=== PATIENT | female | born 1955 | race Caucasian/White ===

== ENCOUNTER 2021-12-05 16:08 | Emergency (ER) | payer MEDICARE, SELFPAY ==
--- NOTE | ~2021-12-05 | XR_ITS ---
EXAMINATION: XR chest 2V DATE: 12/05/2021 16:56 INDICATION: Cough and shortness of breath and wheezing. TECHNIQUE: Frontal and lateral views of the chest were obtained. COMPARISON: Chest 2 views 08/29/2019 FINDINGS: There is table mild scarring at the lung apices. There are airspace opacities in the lower lung zones. No pleural effusion or pneumothorax. The heart size is normal. IMPRESSION: 1. Airspace opacities in the lower lung zones, consistent with atelectasis versus pneumonia. Reviewed, dictated and finalized at location A. IMPRESSION: 1. Airspace opacities in the lower lung zones, consistent with atelectasis vers us pneumonia.
[2021-12-05 16:30] VITALS: BP 137/61; PULSE 100; RESP 20; TEMP 37.7; O2SAT 92
--- NOTE | 2021-12-05 17:29 | ED.URI ---
HPI - URI/Sore Throat General Chief Complaint: Upper Respiratory Infection Stated Complaint: wheezing, cough,chest pain Time Seen by Provider: 12/05/21 17:25 Source: patient and RN notes reviewed Mode of arrival: ambulatory Limitations: no limitations History of Present Illness HPI Narrative: 66-year-old female presents concern for body aches, cough, wheezing, fevers. Reports symptoms started in the last day. She reports mid back pain. She reports occasional shortness of breath. She reports she has been taking Mucinex. She denies any known sick contacts. MD elicited complaint: cough Related Data Home Medications Medication Instructions Recorded Confirmed albuterol sulfate 1 puff INHALATION QID PRN 09/22/19 12/05/21 atorvastatin 10 mg PO DAILY 09/22/19 12/05/21 dexlansoprazole [Dexilant] 60 mg PO DAILY 09/22/19 12/05/21 alendronate mg PO 12/05/21 amlodipine 12/05/21 12/05/21 levothyroxine 25 mcg PO DAILY 12/05/21 12/05/21 Allergies Allergy/AdvReac Type Severity Reaction Status Date / Time prednisone Allergy Unknown ELEVATED BP Verified 12/05/21 16:52 tramadol Allergy Unknown Hallucinati Verified 12/05/21 16:52 ng Review of Systems Review of Systems: CONSTITUTIONAL: Reports malaise, fever. EYES: Denies visual changes, redness, or discharge. ENT: Reports rhinorrhea, congestion. Denies sinus pain, otalgia and sore throat. CARDIOVASCULAR: Denies chest pain, palpitations, or edema. RESPIRATORY: Reports cough, dyspnea. GASTROINTESTINAL: Denies abdominal pain, nausea, vomiting, diarrhea SKIN: Denies rash or itching. MUSCULOSKELETAL: Reports myalgia. NEUROLOGIC: Denies headache. All systems reviewed & are unremarkable except as noted in HPI and below PMFSH Past Medical History Medical History (Updated 12/05/21 @ 17:35 by Jackelin Pascual NP) GERD (gastroesophageal reflux disease) Hypercholesterolemia Comments At time of signature, agree with nursing past medical, surgical, social and family history. There is no relevant family history pertinent to the presenting complaint Exam Narrative: GENERAL: Well-appearing, well-nourished, and in no acute distress. HEAD: Normocephalic EYES: PERRLA, conjunctivae clear ENT: Nares clear, clear discharge. Mucous membranes moist. TM pearly ambriz with sharp light reflex bilaterally; no tragal tenderness. Oropharynx not erythematous without lesions. Tonsils not enlarged and without exudate, no drooling, no hoarseness, no trismus, uvula midline. NECK: Supple. No lymphadenopathy CHEST: Scattered and rhonchi right-sided wheeze, otherwise clear to auscultation, breath sounds diminished in the bases. No rales, or stridor. No respiratory distress, speaks in full sentences. HEART: Regular rate and rhythm. No murmur heard. SKIN: Warm, dry, no rash. NEURO: Alert and oriented x3. PSYCH: Normal mood and affect Course Course Emergency Course: Patient is aware of diagnosis, understands and agrees to treatment plan. Anticipatory guidance given. Patient agrees to follow-up as directed and is aware of reasons to seek care at the emergency department. Portions of this record may have been created with voice recognition software Level of Care: Express Care Visit Vital Signs Vital signs: Vital Signs Temperature 100 F H 12/05/21 16:30 Pulse Rate 100 12/05/21 16:30 Respiratory Rate 20 12/05/21 16:30 Blood Pressure 137/61 12/05/21 16:30 Pulse Oximetry 92 12/05/21 16:30 Temperature 100 F H 12/05/21 16:30 Pulse Rate 100 12/05/21 16:30 Respiratory Rate 20 12/05/21 16:30 Blood Pressure 137/61 12/05/21 16:30 Pulse Oximetry 92 12/05/21 16:30 Reviewed. MDM - URI/Sore Throat MDM Narrative Medical decision making narrative: Differential diagnosis considered: [place] virus, strep pharyngitis, allergic rhinitis, upper respiratory tract infection, sinusitis, rhinosinusitis, nasopharyngitis. viral pharyngitis, otitis media, otitis externa, pneumonia, bronchitis, dasia
== END 2021-12-05 17:41 | disposition home or self-care (01) ==
PROVIDERS: Emergency Provider Nurse Practitioner
DX: J18.1 Lobar pneumonia, unspecified organism (principal); K21.9 Gastro-esophageal reflux disease without esophagitis; E78.00 Pure hypercholesterolemia, unspecified
CPT/HCPCS: 71046; 99213; G0463

== ENCOUNTER 2022-04-07 09:15 | Emergency (ER) | payer MEDICARE, SELFPAY ==
[2022-04-07 09:20] VITALS: BP 153/75; PULSE 69; RESP 20; TEMP 36.6; O2SAT 99
--- NOTE | 2022-04-07 09:43 | ED.FEMALEGU ---
HPI - Female Genitourinary General Chief complaint: Urogenital-Female Stated complaint: Urinary Problem Time Seen by Provider: 04/07/22 09:45 Source: patient and RN notes reviewed Mode of arrival: ambulatory Limitations: no limitations History of Present Illness HPI Narrative: 66-year-old female presented for complaint of burning with urination, suprapubic pressure, urinary frequency and urgency for 2 days. She has been taking [id number] Azo for symptoms. She denies nausea, vomiting, flank pain, fevers or chills. Related Data Home Medications Medication Instructions Recorded Confirmed albuterol sulfate 90 mcg/actuation 1 puff inhalation QID PRN sob 09/22/19 04/07/22 aerosol inhaler atorvastatin 10 mg tablet 10 mg PO DAILY 09/22/19 12/05/21 dexlansoprazole 60 mg 60 mg PO DAILY 09/22/19 12/05/21 capsule,biphase delayed release (Dexilant) alendronate 70 mg tablet mg PO 12/05/21 amlodipine 2.5 mg tablet 12/05/21 12/05/21 levothyroxine 25 mcg tablet 25 mcg PO DAILY 12/05/21 12/05/21 Allergies Allergy/AdvReac Type Severity Reaction Status Date / Time prednisone Allergy Unknown ELEVATED BP Verified 04/07/22 09:47 tramadol Allergy Unknown Hallucinati Verified 04/07/22 09:47 ng doxycycline AdvReac Nausea and Verified 04/07/22 09:48 Vomiting Review of Systems Review of Systems: CONSTITUTIONAL: Denies body aches, fever, chills, or sweats. CARDIOVASCULAR: Denies chest pain, palpitations, or edema. RESPIRATORY: Denies cough or dyspnea. GASTROINTESTINAL: Denies abdominal pain, nausea, vomiting, or diarrhea. GENITOURINARY: Reports dysuria, frequency, urgency, hematuria, flank pain SKIN: Denies rash, itching, or wounds. MUSCULOSKELETAL: Denies back pain or myalgia. [facility], LAT[facility] Past Medical History Medical History GERD (gastroesophageal reflux disease) Hypercholesterolemia Comments At time of signature, I have reviewed and agree with nursing past medical, surgical, social and family history unless otherwise noted. Please see nursing chart for further information. There is no relevant family history pertinent to the presenting complaint Exam Narrative: GENERAL: Well-appearing and in no acute distress. ENT: Mucous membranes pink and moist. CHEST: No respiratory distress. Clear to auscultation. HEART: Regular rate and rhythm. ABDOMEN: Soft, nontender, nondistended, normal active bowel sounds. No CVA tenderness SKIN: Warm, dry, no rash. NEURO: No focal deficits. Alert and oriented x3. Gait steady. PSYCH: Normal affect. Course Course Emergency Course: Patient is aware of diagnosis, understands and agrees to treatment plan. Anticipatory guidance given. Patient agrees to follow-up as directed and is aware of reasons to seek care at the emergency department. Portions of this record may have been created with voice recognition software Level of Care: Express Care Visit Vital Signs Vital signs: Vital Signs Temperature 98 F 04/07/22 09:20 Pulse Rate 69 04/07/22 09:20 Respiratory Rate 20 04/07/22 09:20 Blood Pressure 153/75 H 04/07/22 09:20 Pulse Oximetry 99 04/07/22 09:20 Oxygen Delivery Room Air 04/07/22 09:20 Temperature 98 F 04/07/22 09:20 Pulse Rate 69 04/07/22 09:20 Respiratory Rate 20 04/07/22 09:20 Blood Pressure 153/75 H 04/07/22 09:20 Pulse Oximetry 99 04/07/22 09:20 Oxygen Delivery Room Air 04/07/22 09:20 Reviewed MDM - Female Genitourinary MDM Narrative Medical decision making narrative: We will treat for UTI at this time given the patient's symptoms. She is advised to follow-up with her PCP. She is aware of signs symptoms to go to the ER. Lab Data Labs: Urine Glucose Negative Reference Range: Negative Urine Bilirubin Negative Reference Range: Ne
== END 2022-04-07 10:00 | disposition home or self-care (01) ==
PROVIDERS: Emergency Provider Nurse Practitioner Family
DX: R30.0 Dysuria (principal); K21.9 Gastro-esophageal reflux disease without esophagitis; E78.00 Pure hypercholesterolemia, unspecified
CPT/HCPCS: 81003; 87086; 87088; 99213; G0463

== ENCOUNTER 2022-09-04 14:44 | Emergency (ER) | payer MEDICARE, SELFPAY ==
[2022-09-04 14:48] VITALS: BP 171/70; PULSE 85; RESP 20; TEMP 36.6; O2SAT 98
--- NOTE | 2022-09-04 14:50 | ED.URI ---
HPI - URI/Sore Throat General Chief Complaint: Upper Respiratory Infection Stated Complaint: sinus pressure Time Seen by Provider: 09/04/22 14:58 Source: patient and RN notes reviewed Mode of arrival: ambulatory Limitations: no limitations History of Present Illness HPI Narrative: 67-year-old female presents with concern for cough, sore throat, nasal congestion, sinus pressure and pain. Reports 3 week history of symptoms. Reports [id number] medications are not helping her symptoms. MD elicited complaint: cough and sore throat Related Data Home Medications Medication Instructions Recorded Confirmed albuterol sulfate 90 mcg/actuation 1 puff inhalation QID PRN sob 09/22/19 04/07/22 aerosol inhaler atorvastatin 10 mg tablet 10 mg PO DAILY 09/22/19 12/05/21 dexlansoprazole 60 mg 60 mg PO DAILY 09/22/19 12/05/21 capsule,biphase delayed release (Dexilant) alendronate 70 mg tablet mg PO 12/05/21 amlodipine 2.5 mg tablet 12/05/21 12/05/21 levothyroxine 25 mcg tablet 25 mcg PO DAILY 12/05/21 12/05/21 Allergies Allergy/AdvReac Type Severity Reaction Status Date / Time prednisone Allergy Unknown ELEVATED BP Verified 04/07/22 09:47 tramadol Allergy Unknown Hallucinati Verified 04/07/22 09:47 ng doxycycline AdvReac Nausea and Verified 04/07/22 09:48 Vomiting Review of Systems Review of Systems: CONSTITUTIONAL: Reports malaise. Denies chills, sweats, or fever. EYES: Denies visual changes, redness, or discharge. ENT: Reports rhinorrhea, congestion, sinus pain, and sore throat. CARDIOVASCULAR: Denies chest pain, palpitations, or edema. RESPIRATORY: Reports persistent cough. Denies dyspnea. GASTROINTESTINAL: Denies abdominal pain, nausea, vomiting, diarrhea SKIN: Denies rash or itching. MUSCULOSKELETAL: Denies myalgia. NEUROLOGIC: Reports headache. All systems reviewed & are unremarkable except as noted in HPI and below PMFSH Past Medical History Medical History GERD (gastroesophageal reflux disease) Hypercholesterolemia Comments At time of signature, agree with nursing past medical, surgical, social and family history. There is no relevant family history pertinent to the presenting complaint Exam Narrative: GENERAL: Nontoxic-appearing and in no acute distress. HEAD: Normocephalic EYES: PERRLA, conjunctivae clear ENT: Nares clear, turbinates edematous and erythematous. Mucous membranes moist. TM pearly ambriz with dull light reflex bilaterally; no tragal tenderness. Oropharynx not erythematous without lesions. Tonsils not enlarged and without exudate, no drooling, no hoarseness, no trismus, uvula midline. NECK: Supple. No lymphadenopathy CHEST: Clear to auscultation, breath sounds equal. No wheezing, rhonchi, rales, or stridor. No respiratory distress, speaks in full sentences. Cough noted HEART: Regular rate and rhythm. No murmur heard. SKIN: Warm, dry, no rash. NEURO: Alert and oriented x3. PSYCH: Normal mood and affect Course Course Emergency Course: Patient is aware of diagnosis, understands and agrees to treatment plan. Anticipatory guidance given. Patient agrees to follow-up as directed and is aware of reasons to seek care at the emergency department. Portions of this record may have been created with voice recognition software Level of Care: Express Care Visit Vital Signs Vital signs: Reviewed. MDM - URI/Sore Throat MDM Narrative Medical decision making narrative: Differential diagnosis considered: [place] virus, strep pharyngitis, allergic rhinitis, upper respiratory tract infection, sinusitis, rhinosinusitis, nasopharyngitis. viral pharyngitis, otitis media, otitis externa, pneumonia, bronchitis, viral cough syndrome, viral syndrome, and influenza. Exam findings show no acute concerns or changes; patient is non-toxic appearing and is in no distress. Patient is appropriate for outpatient treatment and follow-up. Lab Data At
== END 2022-09-04 15:12 | disposition home or self-care (01) ==
PROVIDERS: Emergency Provider Nurse Practitioner
DX: J32.9 Chronic sinusitis, unspecified (principal); J40 Bronchitis, not specified as acute or chronic; K21.9 Gastro-esophageal reflux disease without esophagitis; E78.00 Pure hypercholesterolemia, unspecified
CPT/HCPCS: 99213; G0463

== ENCOUNTER 2022-10-10 08:33 | Emergency (ER) | payer MEDICARE, BC, SELFPAY ==
--- NOTE | ~2022-10-10 | XR_ITS ---
EXAMINATION: XR chest 2V DATE: 10/10/2022 11:16 INDICATION: Worsening cough TECHNIQUE: PA and lateral views of the chest are obtained. COMPARISON: 12/05/2021 FINDINGS: The lungs are free of acute opacities. No pleural effusion or pneumothorax. The cardiomedia stinal silhouette is normal. There is mild thoracic spondylosis. IMPRESSION: 1. No acute cardiopulmonary abnormality. Reviewed, dictated and finalized at location B. OLOGY TECHNICIAN
[2022-10-10 08:46] VITALS: BP 165/64; PULSE 80; RESP 16; TEMP 36.9; O2SAT 97
--- NOTE | 2022-10-10 08:50 | ED.URI ---
HPI - URI/Sore Throat General Chief Complaint: Upper Respiratory Infection Stated Complaint: cough / cold Time Seen by Provider: 10/10/22 09:04 Source: patient and RN notes reviewed Mode of arrival: ambulatory Limitations: no limitations History of Present Illness HPI Narrative: 67 y/o female presented for c/o worsening intermittent cough over the past few days. Endorses chronic harsh cough, now reports more frequent nonproductive cough and is not able to sleep as a result. Endorses nasal drainage and headache from coughing. Denies sob, cp, palpitations, n/v/d/f/c. Denies fatigue, dizziness, or decreased appetite. Former 1ppd smoker x30 years, quit 15 years ago. dx sinobronchitis 09/04/22, completed zpack and medrol pack and reported improvement in symptoms, recently ran out of inhaler. Has not f/u with pcp. Taking claritin, mucinex and liquid cough med without relief. MD elicited complaint: cough Related Data Home Medications Medication Instructions Recorded Confirmed atorvastatin 10 mg tablet 10 mg PO DAILY 09/22/19 10/10/22 alendronate 70 mg tablet 70 mg PO WEEKLY 12/05/21 10/10/22 amlodipine 2.5 mg tablet 2.5 mg PO DAILY 12/05/21 10/10/22 levothyroxine 25 mcg tablet 25 mcg PO DAILY 12/05/21 10/10/22 losartan 100 mg tablet 100 mg PO DAILY 10/10/22 10/10/22 metformin 500 mg tablet,extended 500 mg PO DAILY 10/10/22 10/10/22 release 24 hr omeprazole 40 mg capsule,delayed 40 mg PO DAILY 10/10/22 10/10/22 release Allergies Allergy/AdvReac Type Severity Reaction Status Date / Time tramadol Allergy Intermediate Hallucinati Verified 10/10/22 08:46 ng doxycycline AdvReac Intermediate Nausea and Verified 10/10/22 08:46 Vomiting Review of Systems Review of Systems: CONSTITUTIONAL: Denies malaise, chills, sweats, fever EYES: Denies visual changes, redness, or discharge ENT: Reports rhinorrhea, congestion, sinus pain, denies otalgia, sore throat CARDIOVASCULAR: Denies chest pain, palpitations, edema RESPIRATORY: Reports cough, post nasal drainage. Denies dyspnea GASTROINTESTINAL: Denies abdominal pain, nausea, vomiting, diarrhea SKIN: Denies rash or itching MUSCULOSKELETAL: Denies myalgia NEUROLOGIC: Reports headache PMFSH Past Medical History Medical History (Updated 10/10/22 @ 09:48 by Rosemary Marrero APRN) GERD (gastroesophageal reflux disease) Hypercholesterolemia Hypertension Pre-diabetes Exam Narrative: GENERAL: well-appearing EYES: conjunctivae clear ENT: Mucous membranes moist. TM pearly ambriz with light reflex bilaterally; no tragal tenderness. Oropharynx not erythematous, mild white exudate, no drooling, no hoarseness, no trismus, uvula midline. CHEST: Clear to auscultation, breath sounds equal. RLL with mild rhonchi clears with coughing; No wheezing, rhonchi, rales, or stridor. No respiratory distress, speaks in full sentences. HEART: Regular rate and rhythm. No murmur heard. SKIN: Warm, dry, no rash. NEURO: Alert and oriented x3. PSYCH: Normal mood and affect Course Course Emergency Course: Patient is aware of diagnosis, understands and agrees to treatment plan. Anticipatory guidance given. Patient agrees to follow-up as directed and is aware of reasons to seek care at the emergency department. Portions of this record may have been created with voice recognition software Level of Care: Express Care Visit Vital Signs Vital signs: Vital Signs Temperature 98.5 F 10/10/22 08:46 Pulse Rate 80 10/10/22 08:46 Respiratory Rate 16 10/10/22 08:46 Blood Pressure 165/64 H 10/10/22 08:46 Pulse Oximetry 97 10/10/22 08:46 Oxygen Delivery Room Air 10/10/22 08:46 Temperature 98.5 F 10/10/22 08:46 Pulse Rate 80 10/10/22 08:46 Respiratory Rate 16 10/10/22 08:46 Blood Pressure 165/64 H 10/10/22 08:46 Pulse Oximetry 97 10/10/22 08:46 Oxygen Delivery Room Air 10/10/22 08:46 reviewed MDM - URI/Sore Throat MDM Narrative Medical decision making na
== END 2022-10-10 09:55 | disposition home or self-care (01) ==
PROVIDERS: Emergency Provider Nurse Practitioner Family
DX: J40 Bronchitis, not specified as acute or chronic (principal); K21.9 Gastro-esophageal reflux disease without esophagitis; E78.00 Pure hypercholesterolemia, unspecified; I10 Essential (primary) hypertension; R73.03 Prediabetes
CPT/HCPCS: 71046; 99213; G0463

== ENCOUNTER 2023-01-30 10:30 | Emergency (ER) | payer MEDICARE, BC, SELFPAY ==
[2023-01-30 10:39] VITALS: BP 138/68; PULSE 85; RESP 18; TEMP 36.9; O2SAT 97
[2023-01-30 10:43] VITALS: BP 138/68; PULSE 85; RESP 18; TEMP 36.9; O2SAT 97
--- NOTE | 2023-01-30 10:56 | ED.URI ---
HPI - URI/Sore Throat General Chief Complaint: Upper Respiratory Infection Stated Complaint: Cough/Sore Throat Source: patient and RN notes reviewed Mode of arrival: ambulatory Limitations: no limitations History of Present Illness HPI Narrative: 67-year-old female presented for complaint of frequent nonproductive cough for 5 days. Endorses associated sinus congestion and drainage, sore throat, and headache. Denies fatigue, sob, wheezing, n/v/f/c. Taking Xyzal for symptoms. Denies sick contacts. MD elicited complaint: cough Related Data Home Medications Medication Instructions Recorded Confirmed atorvastatin 10 mg tablet 10 mg PO DAILY 09/22/19 01/30/23 alendronate 70 mg tablet 70 mg PO WEEKLY 12/05/21 01/30/23 levothyroxine 25 mcg tablet 25 mcg PO DAILY 12/05/21 01/30/23 losartan 100 mg tablet 100 mg PO DAILY 10/10/22 01/30/23 metformin 500 mg tablet,extended 500 mg PO DAILY 10/10/22 01/30/23 release 24 hr omeprazole 40 mg capsule,delayed 40 mg PO DAILY 10/10/22 01/30/23 release amlodipine 5 mg tablet 5 mg PO DAILY 01/30/23 01/30/23 Allergies Allergy/AdvReac Type Severity Reaction Status Date / Time tramadol Allergy Intermediate Hallucinati Verified 01/30/23 10:38 ng doxycycline AdvReac Intermediate Nausea and Verified 01/30/23 10:38 Vomiting Review of Systems Review of Systems: CONSTITUTIONAL: Denies malaise, chills, sweats, fever EYES: Denies visual changes, redness, or discharge ENT: Reports rhinorrhea, congestion, sore throat CARDIOVASCULAR: Denies chest pain, palpitations, edema RESPIRATORY: Reports cough, post nasal drainage. Denies dyspnea GASTROINTESTINAL: Denies abdominal pain, nausea, vomiting, diarrhea SKIN: Denies rash or itching MUSCULOSKELETAL: Denies myalgia NEUROLOGIC: Endorses headache PMFSH Past Medical History Medical History GERD (gastroesophageal reflux disease) Hypercholesterolemia Hypertension Pre-diabetes Social History Social History (Updated 01/30/23 @ 11:08 by Rosemary Marrero APRN) Smoking status: Former smoker Exam Narrative: GENERAL: mildly Ill-appearing, nontoxic no acute distress. HEAD: Normocephalic EYES: PERRLA, conjunctivae clear ENT: Mucous membranes moist. TMs pearly ambriz with dull light reflex bilaterally; no tragal tenderness. Oropharynx erythematous without lesions or exudate NECK: Supple. No lymphadenopathy CHEST: Clear to auscultation, breath sounds equal. 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 No wheezing, rhonchi, rales, or stridor. No respiratory distress, speaks in full sentences. HEART: Regular rate and rhythm. SKIN: Warm, dry, no rash. NEURO: Alert and oriented x3. PSYCH: Normal mood and affect Course Course Emergency Course: Patient is aware of diagnosis, understands and agrees to treatment plan. Anticipatory guidance given. Patient agrees to follow-up as directed and is aware of reasons to seek care at the emergency department. Portions of this record may have been created with voice recognition software Level of Care: Express Care Visit Vital Signs Vital signs: Vital Signs Temperature 98.4 F 01/30/23 10:39 Pulse Rate 85 01/30/23 10:39 Respiratory Rate 18 01/30/23 10:39 Blood Pressure 138/68 01/30/23 10:39 Pulse Oximetry 97 01/30/23 10:39 Oxygen Delivery Room Air 01/30/23 10:39 Temperature 98.4 F 01/30/23 10:43 Pulse Rate 85 01/30/23 10:43 Respiratory Rate 18 01/30/23 10:43 Blood Pressure 138/68 01/30/23 10:43 Pulse Oximetry 97 01/30/23 10:43 Oxygen Delivery Room Air 01/30/23 10:43 reviewed MDM - URI/Sore Throat MDM Narrative Medical decision making narrative: Negative strep test reviewed with patient. Discussed physical exam findings. She states she has had Covid x2 since 04/2022, pneumonia, and bronchitis. Endorses similar cough each time and CXR is 'always clear.' Declines imaging at this time. Advised lowe
== END 2023-01-30 11:06 | disposition home or self-care (01) ==
PROVIDERS: Emergency Provider Nurse Practitioner Family
DX: J06.9 Acute upper respiratory infection, unspecified (principal); K21.9 Gastro-esophageal reflux disease without esophagitis; E78.00 Pure hypercholesterolemia, unspecified; I10 Essential (primary) hypertension; R73.03 Prediabetes
CPT/HCPCS: 87081; 87880; 99213; G0463

== ENCOUNTER 2023-09-06 09:50 | Emergency (ER) | payer MEDICARE, BC, SELFPAY ==
--- NOTE | ~2023-09-06 | XR_ITS ---
EXAMINATION: XR hand LT min 3V INDICATION: Left hand pain, history of prior left fifth finger injury TECHNIQUE: Three views of the left hand are obtained. COMPARISON: None available FINDINGS: There is an age-indeterminate oblique intra-articular fracture at the dorsal base of the fi fth middle phalanx which involves less than 50% of the articular surface. No definite additional frac ture is identified. There is mild polyarticular osteoarthritis involving multiple interphalangeal bebo nts and moderate osteoarthritis at the triscaphe and first carpometacarpal joints. IMPRESSION: 1. Age-indeterminate oblique intra-articular fracture at the dorsal base of the fifth middle phalanx. Reviewed, dictated and finalized at location B. FITS ASSISTANT
[2023-09-06 09:58] VITALS: BP 154/69; PULSE 77; RESP 16; TEMP 37.1; O2SAT 95
--- NOTE | 2023-09-06 10:16 | ED.EXTPRO ---
HPI - Extremity Problem General Chief complaint: Extremity Problem,Nontraumatic Stated complaint: left hand swollen and painful Source: patient and RN notes reviewed Mode of arrival: ambulatory Limitations: no limitations History of Present Illness HPI Narrative: 68-year-old female presents concern for left wrist/hand pain and swelling. Reports that started last night somewhat suddenly. She denies any distinct injury. Reports before she started having pain she was caring a heavy pot of soup but did not have pain at that time. She reports over the course of the night she had trouble sleeping due to the pain and it was very swollen this morning. She reports decreased range of motion in the digits. MD Complaint: extremity pain Related Data Home Medications Medication Instructions Recorded Confirmed atorvastatin 10 mg tablet 10 mg PO DAILY 09/22/19 09/06/23 alendronate 70 mg tablet 70 mg PO WEEKLY 12/05/21 09/06/23 levothyroxine 25 mcg tablet 25 mcg PO DAILY 12/05/21 09/06/23 losartan 100 mg tablet 100 mg PO DAILY 10/10/22 09/06/23 metformin 500 mg tablet,extended 500 mg PO DAILY 10/10/22 09/06/23 release 24 hr omeprazole 40 mg capsule,delayed 40 mg PO DAILY 10/10/22 09/06/23 release amlodipine 5 mg tablet 5 mg PO DAILY 01/30/23 09/06/23 Allergies Allergy/AdvReac Type Severity Reaction Status Date / Time tramadol Allergy Intermediate Hallucinati Verified 09/06/23 09:59 ng doxycycline AdvReac Intermediate Nausea and Verified 09/06/23 09:59 Vomiting Review of Systems Review of Systems: CONSTITUTIONAL: Denies malaise, chills, sweats, or fever. CARDIOVASCULAR: Denies chest pain, palpitations, or edema. RESPIRATORY: Denies cough or dyspnea. SKIN: Denies rash or itching, bruising, redness MUSCULOSKELETAL: Reports left hand pain and swelling NEUROLOGIC: Denies numbness, weakness All systems reviewed & are unremarkable except as noted in HPI and below [facility] Past Medical History Medical History GERD (gastroesophageal reflux disease) Hypercholesterolemia Hypertension Pre-diabetes Surgical History Surgical History History of bowel resection History of exploratory laparotomy Family History Family History Mother Family history non-contributory Social History Social History Smoking status: Former smoker Substance use: never Gender identity (if verbalized by the patient): Female Sexual Orientation (if Verbalized by the Patient): Straight or Heterosexual Spiritual care concerns: No Comments At time of signature, agree with nursing past medical, surgical, social and family history. There is no relevant family history pertinent to the presenting complaint Exam Narrative: GENERAL: Well-appearing, well-nourished, and in no acute distress. HEAD: Normocephalic, atraumatic. EYES: PERRLA, conjunctivae clear NECK: Supple. CHEST: Speaks in full sentences. No respiratory distress. HEART: Regular rate and rhythm. Normal and equal peripheral pulses. EXTREMITIES: Left wrist, digits, hand have grossly normal sensation, limited range of motion. Moderate wrist, hand, digit edema without erythema, warmth, ecchymosis. Normal sensation with sensitivity to light touch and pain. Lateral wrist point tenderness. No open wounds, no skin tenting, no devitalized tissue or atrophy, no trophic changes, no obvious deformity, alignment normal, nearby joints and structures intact. Distal pulses palpable and equal bilaterally, skin warm, dry, pink. Capillary refill less than 3 seconds. SKIN: Warm, dry, no rash. NEURO: Alert and oriented x3. PSYCH: Normal mood and affect Course Course Emergency Course: Patient is aware of diagnosis, understands and agrees to treatment plan
== END 2023-09-06 11:10 | disposition home or self-care (01) ==
PROVIDERS: Emergency Provider Nurse Practitioner
DX: S62.627A Displaced fracture of middle phalanx of left little finger, initial encounter for closed fracture (principal); X58.XXXA Exposure to other specified factors, initial encounter; K21.9 Gastro-esophageal reflux disease without esophagitis; E78.00 Pure hypercholesterolemia, unspecified; I10 Essential (primary) hypertension; R73.03 Prediabetes; Z87.891 Personal history of nicotine dependence
CPT/HCPCS: 73130; 99214; A4565; G0463

== ENCOUNTER 2024-09-08 11:26 | Emergency (ER) | payer MEDICARE, BC, SELFPAY ==
[2024-09-08 11:50] VITALS: BP 144/70; PULSE 69; RESP 18; TEMP 36.9; O2SAT 98
[2024-09-08 12:30] LABS: EDUAAPPEAR Clear; EDUABILI Negative (Negative); EDUABLOOD Negative (Negative); EDUACOLOR1 Yellow; EDUAGLUCOSE Negative (Negative); EDUAKETONE Negative (Negative); EDUALEUKO Negative (Negative); EDUANITRATE Negative (Negative); EDUAPH 6.5; EDUAPROTEIN Negative (Negative); EDUASPGRAVITY 1.015; EDUAUROBILI 0.2
--- NOTE | 2024-09-08 13:28 | ED.GENADULT ---
HPI - General Adult General Chief complaint: Urogenital-Female Stated complaint: Urinary Problem Source: patient Mode of arrival: ambulatory Limitations: no limitations History of Present Illness HPI narrative: Patient presents for evaluation of suprapubic pain. Symptom onset 4 days ago. Pain is constant with interval worsening. She describes the pain as pressure. She currently rates her pain as 4/10 in severity. No history of similar symptoms. She denies any fever, chills, nausea, vomiting, constipation, change in bowel pattern. She does have some urinary urgency and frequency with decreased urinary output. Denies any hematuria, vaginal bleeding or discharge. Surgical history includes colon resection secondary to necrotic bowel, bladder sling and hysterectomy. Related Data Home Medications ?Medication ?Instructions ?Recorded ?Confirmed ?Last Taken ?Type atorvastatin 10 mg tablet 10 mg PO DAILY 09/22/19 09/06/23 Unknown History alendronate 70 mg tablet 70 mg PO WEEKLY 12/05/21 09/06/23 Unknown History levothyroxine 25 mcg tablet 25 mcg PO DAILY 12/05/21 09/06/23 Unknown History losartan 100 mg tablet 100 mg PO DAILY 10/10/22 09/06/23 Unknown History metformin 500 mg tablet,extended 500 mg PO DAILY 10/10/22 09/06/23 Unknown History release 24 hr omeprazole 40 mg capsule,delayed 40 mg PO DAILY 10/10/22 09/06/23 Unknown History release amlodipine 5 mg tablet 5 mg PO DAILY 01/30/23 09/06/23 Unknown History Allergies Allergy/AdvReac Type Severity Reaction Status Date / Time tramadol Allergy Intermediate Hallucinati Verified 09/08/24 12:10 ng doxycycline AdvReac Intermediate Nausea and Verified 09/08/24 12:10 Vomiting Review of Systems Review of Systems: CONSTITUTIONAL: Denies fever, chills, or sweats. EYES: Denies visual changes, redness, or discharge. ENT: Denies rhinorrhea, congestion, sore throat, or otalgia. CARDIOVASCULAR: Denies chest pain, palpitations, or edema. RESPIRATORY: Denies cough or dyspnea. GASTROINTESTINAL: Reports suprapubic pain. Denies nausea, vomiting, or diarrhea. GENITOURINARY: Reports urinary urgency, frequency decreased urinary output. Denies hematuria, vaginal bleeding and discharge. SKIN: Denies rash or itching. MUSCULOSKELETAL: Denies back pain, joint pain, or myalgia. NEUROLOGIC: Denies headache, numbness, dizziness, or weakness. PSYCHIATRIC: Denies anxiety or depression. [facility] Past Medical History Medical History Pre-diabetes Hypertension GERD (gastroesophageal reflux disease) Hypercholesterolemia Surgical History Surgical History History of hysterectomy History of bladder surgery History of exploratory laparotomy History of bowel resection Family History Family History Mother Family history non-contributory Social History Social History Smoking status: Former smoker Substance use: never Gender identity (if verbalized by the patient): Female Sexual Orientation (if Verbalized by the Patient): Straight or Heterosexual Spiritual care concerns: No Exam Narrative: GENERAL: Well-appearing, well-nourished, and in no acute distress. HEAD: Normocephalic, atraumatic. EYES: PERRLA and EOMI. ENT: Nares clear, no rhinorrhea or epistaxis. Mucous membranes moist. Oropharynx without tonsillar hypertrophy exudate or other lesions. Bilateral TMs pearly ambriz nonbulging NECK: Supple. No adenopathy or masses. No carotid bruits or JVD CHEST: Clear to auscultation. No respiratory distress. No wheezes rales or rhonchi HEART: Regular rate and rhythm. No murmur heard. Normal peripheral pulses. ABDOMEN: Soft, nondistended, normal active bowel sounds. There is tenderness in suprapubic region without rebound or guarding. EXTREMITIES: Normal range of motion. No edema. SKIN: Warm, dry, no rash. NEURO: No focal deficits. Alert and oriented x3. PSYCH: Normal mood and affect. Course Course Emergency Course: This is a 69-year-old female who presented for evaluation of suprapubic pain. Urine today was normal. She would likely benefit from labs and potential imaging. Recommended she be transferred to the hospital for further evaluation. [facility] is her facility of choice. I contacted [facility] and spoke with Dr Jackson. He agrees to accept pt for transfer there. Pt transferred via private vehicle. Level of Care: Express Care Visit Vital Signs Vital signs: Vital Signs Temperature 36.9 C 09/08/24 11:50 Pulse Rate 69 09/08/24 11:50 Respiratory Rate 18 09/08/24 11:50 Blood Pressure 144/70 H 09/08/24 11:50 Pulse Oximetry 98 09/08/24 11:50 Oxygen Delivery Room Air 09/08/24 11:50 Temperature 36.9 C 09/08/24 11:50 Pulse Rate 69 09/08/24 11:50 Respiratory Rate 18 09/08/24 11:50 Blood Pressure 144/70 H 09/08/24 11:50 Pulse Oximetry 98 09/08/24 11:50 Oxygen Delivery Room Air 09/08/24 11:50 Medical Decision Making Vital Signs Vital Signs: Vital Signs Temperature 36.9 C 09/08/24 11:50 Pulse Rate 69 09/08/24 11:50 Respiratory Rate 18 09/08/24 11:50 Blood Pressure 144/70 H 09/08/24 11:50 Pulse Oximetry 98 09/08/24 11:50 Oxygen Delivery Room Air 09/08/24 11:50 Temperature 36.9 C 09/08/24 11:50 Pulse Rate 69 09/08/24 11:50 Respiratory Rate 18 09/08/24 11:50 Blood Pressure 144/70 H 09/08/24 11:50 Pulse Oximetry 98 09/08/24 11:50 Oxygen Delivery Room Air 09/08/24 11:50 Lab Data Labs: Lab Results 09/08/24 Range/Units 12:04 POC Urine Color Yellow POC Urine Clarity Clear POC Urine pH 6.5 POC Ur Specif [place] 1.015 POC Urine Protein Negative (Negative) POC Ur Glucose (UA) Negative (Negative) POC Urine Ketones Negative (Negative) POC Urine Blood Negative (Negative) POC Urine Nitrite Negative (Negative) POC Urine Bilirubin Negative (Negative) POC Urine Urobilinogen 0.2 POC U Leukocyte Esteras Negative (Negative) Discharge Plan Discharge Clinical Impression: Suprapubic pain Patient Disposition: Acute Care Hospital Condition: Stable Instructions: Acute Abdominal Pain (DC) Patient Language: Greek Prescriptions: No Action atorvastatin 10 mg Tablet 10 mg PO DAILY omeprazole 40 mg capsule,delayed release(DR/EC) 40 mg PO DAILY losartan 100 mg tablet 100 mg PO DAILY metformin 500 mg tablet extended release 24 hr 500 mg PO DAILY amlodipine 5 mg tablet 5 mg PO DAILY alendronate 70 mg tablet 70 mg PO WEEKLY levothyroxine 25 mcg tablet 25 mcg PO DAILY Follow-up/Referrals: PHYSICIAN NOT ON STAFF,NONSTAFF [Primary Care Provider] - Time of Disposition: 13:26
== END 2024-09-08 13:22 | disposition short-term general hospital (02) ==
PROVIDERS: Emergency Provider Nurse Practitioner
DX: R10.30 Lower abdominal pain, unspecified (principal); Z87.891 Personal history of nicotine dependence; I10 Essential (primary) hypertension; E78.00 Pure hypercholesterolemia, unspecified; K21.9 Gastro-esophageal reflux disease without esophagitis; R73.03 Prediabetes
CPT/HCPCS: 81003; 99212; G0463

== ENCOUNTER 2025-02-04 16:33 | Emergency (ER) | payer MEDICARE, BC, SELFPAY ==
--- OUTSIDE RECORDS SUMMARY | 2025-02-04 16:35 | XMS_ITS | Clinical Summary ---
Author Organization [facility] Address [address] [place] [address] Care Team Providers Care Time Lock Expert Name Role Phone Robinson Vickers MD Primary Care Pr ovider Source Comments [facility],non-owned Affiliates and Associated Physician Practices is amultiple site organization consisting of ambulatory clinics and hospital sitesin [place], [place], [place] and [place]. This disclosure is being madepursuant to the Care Everywhere program and may not contain all information available regarding this patient. Last updated 18.[facility] Allergies Active Allergy Reactions Criticality Noted Date Comments Hydrocodone Nausea and/or Vomiting 09/03/2013 Prednisone Other Low 08/07/2017 Elevates BP Tramadol 07/24/2016 Medications * Be aware that medications may not be up to date on this document. Alwaysverify current medications with the patient. Dexlansoprazole (DEXILANT PO) Active atorvastatin (LIPITOR) 10 MG tablet Take 10 mg by mouth at bedtime Active Cholecalciferol (VITAMIN D PO) Activ e Pyridoxine HCl (VITAMIN B6 PO) Acti ve albuterol HFA (PROVENTIL;VENT ITZEL;PROAIR) 108 (90 Base) MCG/ACT inhaler Inhale 2 puffs by mouth every 4 hours as needed for Shortness of Breath, Wheezing or Cough 1 Inhaler 9 Active Active Problems Problem Noted Date Diagnosed Date GERD (gastroesophageal reflux disease) 6 Hypercholesteremia 07/24/2016 Vitamin D deficiency 07/24/2016 Social History Tobacco Use Types Packs/Day Years Used Date Smoking Tobacco: Former Smokeless Tobacco: Never Comments Unknown Sex and Gender Information Value Date Recorded Sex Assigned at Not on file Legal Sex Female 7:59 AM PLANNING ANALYST Gender Identity Not on file Sexual Orientation Not on file Last Filed Vital Signs Vital Sign Reading Time Taken Comments Blood Pressure 150/84 07/14/2019 4:28 PM PLANNING ANALYST Pulse 72 07/14/2019 4:28 PM PLANNING ANALYST Temperature 36.5 C (97.7 F) 07/14/2019 4:28 PM PLANNING ANALYST Respiratory Rate - - Oxygen Saturation 98% 09/10/2018 11:57 AM PLANNING ANALYST Inhaled Oxygen Concentration - - Weight 67.1 kg (148 lb) 07/14/2019 4:28 PM PLANNING ANALYST Height 160 cm (5' 3) 07/14/2019 4:28 PM PLANNING ANALYST Body Mass Index 26.22 07/14/2019 4:28 PM PLANNING ANALYST Plan of Treatment Health Maintenance Due Date Last Done Comments BONE DENSITY TESTING 1955 COLOGUARD (AGES 45-75) - COLON CA SCREENING 1955 COLON MONITORING 1955 COLONOSCOPY - COLON CA SCREENING 1953 CT COLONOGRAPHY - COLON CA SCREENING 1955 Colorectal Cancer Screening 1955 FIT - COLON CA SCREENING 1955 FLEX SIG - COLON CA SCREENING 1955 HEPATITIS C SCREENING 07/31/1971 DTAP/TDAP/TD VACCINES (1 - Tdap) 1972 PNEUMOCOCCAL VACCINE 50+ (1 of 1 - PCV) 2003 ZOSTER VACCINE (1 of 2) 2003 SCREENING FOR DIABETES 08/07/2017 MAMMOGRAM 08/01/2020 08/01/2018, 08/01/2018 COVID-19 VACCINE (1 - 2023- season) 2024 DEPRESSION SCREENING 09/09/2024 INFLUENZA VACCINE (Season Ended) 2025 06/18/2018, 06/13/2018, 05/30/2014, Additional history exists Respiratory Syncytial Virus (RSV) Vaccine Pt: or over 60 yrs (1 - 1-dose 75+ series) 2028 HEPATITIS B VACCINE Aged Out No longe r eligible based on patient's age to complete this topic HIB VACCINE Aged Out No longer eligi ble based on patient's age to complete this topic HPV VACCINE Aged Out No longer eligi ble based on patient's age to complete this topic MENINGOCOCCAL (Group B) VACCINE SHARED DECISION-MAKING Aged Out No longer eligible based on patient's age to complete this topic MENINGOCOCCAL GROUPS A/C/Y/W VACCINE Aged Out No longer eligible based on patient's age to complete this topic Insurance [employer] Care Teams Time Lock Expert Relationship Specialty [place] [address] [place] [id number] PCP - General Internal Medicine 07/06/19
--- OUTSIDE RECORDS SUMMARY | 2025-02-04 16:35 | XMS_ITS | Clinical Summary ---
Author Organization [facility] Address [address] [place] [address] Phone Care Team Providers Care Business Administration Professor Name Role Phone Provider, Not On File Primary Care Provider Unav ailable Allergies Active Allergy Reactions Criticality Noted Date Comments Prednisone Other (see Comments) 09/17/2016 hypertension Medications FLUTICASONE FUROATE NAIndications:each nostril 2 Sprays. Indications: each nostril Active Calcium Carbonate-Vitamin D (CALTRATE 600+D PO) daily. Active atorvastatin (LIPITOR) 10 MG Tablet Take 10 mg by mouth daily. Active Dexlansoprazole 60 MG CAPSULE DELAYED RELEASEIndications: Symptomatic Gastroesophageal Reflux Disease (Inactive) Take 1 Cap by mouth daily. Indications: Gastroesophageal Reflux Disease with Current Symptoms Active Active Problems Problem Noted Date Diagnosed Date Rotator cuff tear, right 09/26/2016 HTN (hypertension) Dyslipidemia Dysphagia Gastroesophageal reflux disease Family History Medical History Relation Name Comments Heart Attack Father Relation Name Status Comments Father Mother Alive Social History Tobacco Use Types Packs/Day Years Used Date Smoking Tobacco: Former Cigarettes Q uit: 09/17/2007 Smokeless Tobacco: Never Alcohol Use Standard Drinks/Week Comments No 0 (1 standard drink = 0.6 oz pur e alcohol) Comments No Sex and Gender Information Value Date Recorded Sex Assigned at Not on file Legal Sex Female 11:35 PM CDT Gender Identity Not on file Sexual Orientation Not on file Last Filed Vital Signs Vital Sign Reading Time Taken Comments Blood Pressure 120/70 09/26/2016 2:35 PM SHADE CUTTER Pulse 74 09/26/2016 2:35 PM SHADE CUTTER Temperature 34.9 C (94.8 F) 09/26/2016 2:35 PM SHADE CUTTER Respiratory Rate 16 09/26/2016 2:35 PM SHADE CUTTER Oxygen Saturation 94% 09/26/2016 2:35 PM SHADE CUTTER Inhaled Oxygen Concentration - - Weight 65.8 kg (145 lb) 09/17/2016 9:00 AM SHADE CUTTER Height 160 cm (5' 3) 09/17/2016 9:00 AM SHADE CUTTER Body Mass Index 25.69 09/17/2016 9:00 AM SHADE CUTTER Plan of Treatment Health Maintenance Due Date Last Done Comments Hepatitis C Virus (HCV) Screening 1955 TdaP Immunization 1955 Colonoscopy 1998 Colorectal Cancer Screening 1998 Cologuard 2003 Immunochemical Fecal Occult Blood 2003 Pneumococcal Immunization (5 0+ years) (1 of 1 - PCV) 2003 Zoster Immunization (1 of 2) 2003 Influenza Immunization (#1) 05/10/202405/11, 06/12/2018 SARS-COV-2 Immunization ( season) 2024 06/21/2021, 11/18/2020, 10/28/2020 Respiratory Syncytial Virus (RSV) Immunization (Adult) (1 - 1-dose 75+ series) 2028 Mammogram Discontinued 08/22/2020, 08/01/2018, 04/06/2016 Hepatitis B Immunization Aged Out No longer eligible based on patient's age to complete this topic Meningococcal Immunization (ACWY) Aged Out No longer eligible based on patient's age to complete this topic Rotavirus Immunization Aged Out No lo nger eligible based on patient's age to complete this topic Procedures Procedure Name Priority Date/Time Associated Diagnosis Comments AYESHA SCREENING BILATERAL DIGITAL W CAD W LEDY Routine 08/22/2020 8:23 AM SHADE CUTTER Encounter for mammogram to establish baseline mammogram from Last 3 Months or Most Recently Relevant to Health Maintenance Results * AYESHA SCREENING BILATERAL DIGITAL W CAD W LEDY (08/22/2020 8:23 AM SHADE CUTTER) Anatomical Region Laterality Modality breast Bilateral Mammography 08/22/2020 7:52 AM SHADE CUTTER Narrative 08/22/2020 11:08 AM SHADE CUTTER - AYESHA SCREENING BILATERAL DIGITAL W CAD W LEDY BILATERAL DIGITAL SCREENING MAMMOGRAM 3D/2D WITH CAD WITH MEDIOLATERAL OBLIQUE CRANIOCAUDAL: 08/22/2020 The study was acquired using digital technology and interpreted from soft copy. Current study was also evaluated with ICAD version 7.2. CLINICAL: Routine screening. Patient has no complaints. No personal history of cancer. No family history of breast cancer. COMPARISONS: Comparison is made to exams dated: 08/01/2018, 04/06/2016, and 03/31/2015 [facility]. BREAST TISSUE:There are scattered fibroglandular densities in both breasts. FINDINGS: There is a benign density in the right breast. There also are benign densities in the left breast. No significant masses, calcifications, or other findings are seen in either breast. There has been no significant interval change. IMPRESSION: BI-RAD 2 BENIGN There is no mammographic evidence of malignancy. A 1 year screening mammogram is recommended. The patient has been or will be contacted. The patient will be entered into a reminder system with a target due date of 1 year for her next screening exam. Electronically signed by: Nadia tena/keyur:08/22/2020 09:46:58 Child Development Assistant: Megan Bailey(Alfredito)(M), [facility] letter sent: Normal Exam Reading location: [facility] BI-RADS: 2 Benign Procedure Note Nadia Acevedo MD - 08/22/2020 - AYESHA SCREENING BILATERAL DIGITAL W CAD W LEDY BILATERAL DIGITAL SCREENING MAMMOGRAM 3D/2D WITH CAD WITH MEDIOLATERAL OBLIQUE CRANIOCAUDAL: 08/22/2020 The study was acquired using digital technology and interpreted from soft copy. Current study was also evaluated with ICAD version 7.2. CLINICAL: Routine screening. Patient has no complaints. No personal history of cancer. No family history of breast cancer. COMPARISONS: Comparison is made to exams dated: 08/01/2018, 04/06/2016, and 03/31/2015 [facility]. BREAST TISSUE:There are scattered fibroglandular densities in both breasts. FINDINGS: There is a benign density in the right breast. There also are benign densities in the left breast. No significant masses, calcifications, or other findings are seen in either breast. There has been no significant interval change. IMPRESSION: BI-RAD 2 BENIGN There is no mammographic evidence of malignancy. A 1 year screening mammogram is recommended. The patient has been or will be contacted. The patient will be entered into a reminder system with a target due date of 1 year for her next screening exam. Electronically signed by: Nadia tena/keyur:08/22/2020 09:46:58 Child Development Assistant: Megan Davison)(M), [facility] letter sent: Normal Exam Reading location: [facility] BI-RADS: 2 Benign [facility] Maurice Vickers MD IMG MAMMO ORDERA BLES Final Result from Last 3 Months or Most Recently Relevant to Health Maintenance Insurance MEDICARE [facility] Care Teams Business Administration Professor Relationship Specialty Start Date End Date Provider, Not On File [place] PCP - General 11/13/19
--- OUTSIDE RECORDS SUMMARY | 2025-02-04 16:35 | XMS_ITS | Clinical Summary ---
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 8 Active loratadine 10 mg tablet Take 10 mg by mouth daily. Active albuterol sulfate HFA 90 mcg/actuation aerosol inhalerIndication s:Seasonal allergic rhinitis due to pollen Take 2 Puffs by inhalation every 6 hours as needed for Shortness of Breath or Wheezing. 8.5 Gram 3 Active ipratropium bromide (ATROVENT) 42 mcg (0.06 %) [place], Non-AerosolIndica tions:Seasonal allergic rhinitis due to pollen Administer 2 Sprays in each nostril 2 times daily with meals. 15 mL 4 Active levothyroxine 25 mcg tablet take 1 tablet by mouth every day 100 Tablet 3 4 Active metFORMIN (GLUCOPHAGE XR) 500 mg Extended Release 24 hour tabletIndications :Prediabetes,Impa ired glucose tolerance take 1 tablet by mouth every day 100 Tablet 3 4 Active Blood-Glucose Sensor (FreeStyle Lindy 3 Sensor) DeviceIndications :Type 2 diabetes mellitus without complication, without long-term current use of insulin ([facility]) Use to monitor glucose continuously. Apply a sensor every 14 days. 6 Each 3 4 Active topiramate (TOPAMAX) 25 mg tabletIndications :Overweight (BMI 25.0-29.9) TAKE 2 TABLETS BY MOUTH DAILY AT BEDTIME 200 Tablet 1 5 Active famotidine (PEPCID) 40 mg tabletIndications :Gastroesophageal reflux disease without esophagitis Take 1/2 tablet in the am and 1 tablet in the pm 100 Tablet 1 5 Active cyclobenzaprine (FLEXERIL) 5 mg TabletIndications :Spasm of cervical paraspinous muscle Take 1 Tablet (5 mg) by mouth nightly as needed for Spasm. 20 Tablet 1 5 Active atorvastatin (LIPITOR) 10 mg tablet Take 1/2 tablet daily 100 Tablet 3 5 Active alendronate (FOSAMAX) 70 mg tabletIndications :Age-related osteoporosis without current pathological fracture TAKE 1 TABLET (70 MG) BY MOUTH EVERY 7 DAYS. EMPTY STOMACH BEFORE OTHER MEDS,WITH 8OZ OF WATER, STAY UPRIGHT 30 MIN 12 Tablet 5 Active Active Problems Problem Noted Date Diagnosed Date Impaired glucose tolerance 03/08/2022 Primary hypertension 10/05/2021 Age-related osteoporosis wit hout current pathological fracture 04/28/2021 Overview (04/28/2021): 04/2021, Fosamax initiated Type 2 diabetes mellitus wit hout complication, without long-term current use of insulin 02/21/2021 Acquired hypothyroidism 05/17/2020 Physical urticaria 02/12/2019 Hepatic hemangioma 12/08/2018 Bereavement due to life event 12/08/2018 Esophageal hiatal hernia 12/08/2018 S/P balloon dilatation of esophageal stricture 0 12/08/2018 Overweight (BMI 25.0-29.9) 12/09/2017 Rotator cuff tear, right 09/26/2016 Allergic rhinitis due to pollen 03/23/2016 Discoid lupus 04/01/2015 Overview (04/01/2015): Reportedly diagnosed by dermatology with biopsy 201309/06/14 mesh removal, SSC, sling, SPT, repairs, Rx done 09/06/2014 Fatty liver disease, nonalcoholic 04/02/2014 Overview (04/02/2014): Ultrasound 01/19. In 2010 iron studies and hepatitis B and C. serology were unremarkable. Vitamin D deficiency 04/02/2014 Gastroesophageal reflux disease without esophagi tis 09/21/2011 Other hyperlipidemia 07/04/2011 Resolved Problems Problem Noted Date Diagnosed Date Resolved Date Need for DTaP, Hib, and HBV vaccine 08/24/2021 08/24/2021 Generalized abdominal pain 12/08/2018 0 02/12/2019 Osteopenia 04/02/2014 04/28/2021 PVD (peripheral vascular disease) 09/03/2013 04/01/2015 Headache(784.0) 09/03/2013 04/02/2014 Disorder of bone and cartilage, unspecified 09/21/2011 04/02/2014 Encounters Date Type Department Care Team Description 01/28/2025 External Device Data ST[facility] ABSTRACTION Provider, Abstract 01/28/2025 External Device Data ST[facility] ABSTRACTION Provider, Abstract 01/27/2025 External Device Data ST[facility] ABSTRACTION Provider, Abstract 12/22/2024 Refill [facility] Internal Medicine - [place] [address] [place] [address] Robinson Vickers MD Age-related osteoporosis without current pathological fracture 12/02/2024 Telephone [facility] Internal Medicine - [place] [address] [place] [address] Robinson Vickers MD Medication Review 11/25/2024 External Device Data STL ABSTRACTION Provider, Abstract 11/18/2024 Results Follow-Up [facility] Internal Medicine - [place] [address] [place] [address] Magaly Ovalles NP POC HEMOGLOBIN A1C, COMPREHENSIVE METABOLIC PANEL, MICROALBUMIN/CREATINI NE RATIO, RANDOM UR 11/14/2024 External Device Data ST[facility] ABSTRACTION Provider, Abstract 11/13/2024 External Device Data STL ABSTRACTION Provider, Abstract 11/10/2024 11:30 AM GLASS GLAZIER Office Visit [facility] Internal Medicine - [place] [address] [place] [address] Magaly Ovalles NP Type 2 diabetes mellitus without complication, without long-term current use of insulin ([facility]) (Primary Dx); Spasm of cervical paraspinous muscle; Gastroesophageal reflux disease without esophagitis; Hypotension, unspecified hypotension type; Strain of foot, unspecified laterality, initial encounter; Ear congestion, unspecified laterality 11/10/2024 External Device Data STL ABSTRACTION Provider, Abstract 11/09/2024 Telephone [facility] Internal Medicine - [place] [address] [place] [address] Robinson Vickers MD Clinical Consult Before Scheduling from Last 3 Months Immunizations Immunization Administration Dates Next Due (ADACEL/BOOSTRIX)(10 YR UP) TDAP VACCINE, 0.5ML, IM 02/15/2020 (PFIZER)(12 YR UP) COVID-19 VACCINE - EMERGENCY USE AUTHORIZATION, MRNA, [id number](PF) 30 MCG/0.3 ML IM SUSP 06/21/2021,11/18/2020,10/28/2020 (PNEUMOVAX 23)(50 YRS UP) PN EUMOCOCCAL POLYSACCHARIDE (PPV23) 0.5 ML, IM 02/15/2020 (PREVNAR 13)(6 WKS UP) PNEUM OCOCCAL CONJUGATE (PCV13) 0.5 ML, IM 02/12/2019 (TDVAX)(7 YRS UP) TETANUS AN D DIPHTHERIA TOXOIDS, ADSORBED (2 LF OF TETANUS TOXOID AND 2 LF OF DIPHTHERIA TOXOID), 0.5ML (PF), IM 10/10/2009 INFLUENZA VACCINE HIGH DOSE QUADRIVALENT 65 YR UP PF IM 05/07/2020 INFLUENZA VACCINE QUADRIVALE NT 3 YR UP PF IM 06/13/2018 Influenza Seasonal Unspecifi ed Formulation IM 05/16/2023,05/17/2022,05/07/2021,06/18,05/30/2014,06/11/2013 Influenza Vaccine High Dose 65+ Yrs IM 9 Zoster Vaccine Live SQ 04/27/2014 Family History Medical History Relation Name Comments Healthy Brother Healthy Daughter 1 Healthy Daughter 2 Healthy Daughter 3 Heart Attack Father Joseph Cervantes Heart Disease Father Joseph Cervantes High Cholesterol Father Joseph Cervantes Hypertension Father Joseph Cervantes Dementia Mother Jessica Vidal Hypertension Mother Jessica Vidal Osteoporosis Mother Jessicashaun Vidal Thyroid Disease Mother Jessica Joinangus Healthy Sister 1 Diabetes Sister 2 Pat Mold Worker Healthy Sister 3 Elenita Yutan Diabetes Sister 4 Pat Mold Worker Healthy Son Colon Cancer Neg Hx Relation Name Status Comments Brother Alive Daughter 1 Alive Daughter 2 Alive Daughter 3 Alive Father Joseph Cervantes Maternal Grandfather Maternal Grandmother Mother Jessica Vidal Paternal Grandfather Paternal Grandmother Sister 1 Alive Sister 2 Pat Mold Worker Sister 3 Elenita Mold Worker Alive Sister 4 Pat Mold Worker Alive Son Alive Social History Tobacco Use Types Packs/Day Years Used Date Smoking Tobacco: Former Cigarettes 1 30 0 11/12/1976 - 11/12/2006 Passive Smoke Exposure: Past Smokeless Tobacco: Never Tobacco Cessation:Counseling Given: Not Answered Alcohol Use Standard Drinks/Week Comments No 0 (1 standard drink = 0.6 oz pur e alcohol) Financial Resource Strain Answer Date R ecorded How hard is it for you to pa y for the very basics like food, housing, medical care, and heating? Not hard at all 03/01/2022 Food Insecurity Answer Date Recorded In the past 12 months, have you worried that your food would run out before you had money to buy more? Never true 03/01/2022 In the past 12 months, did y ou run out of food and didn't have money to buy more? Never true 03/01/2022 Transportation Needs Answer Date Record ed In the past 12 months, has l ack of transportation kept you from medical appointments or from getting medications? 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 Not on file Not on file Last Filed Vital Signs Vital Sign Reading Time Taken Comments Blood Pressure 126/64 11/10/2024 11:14 AM GLASS GLAZIER Pulse 67 11/10/2024 11:14 AM GLASS GLAZIER Temperature 36.4 C (97.6 F) 11/10/2024 11:14 AM GLASS GLAZIER Respiratory Rate 21 11/10/2024 11:14 AM GLASS GLAZIER Oxygen Saturation 97% 11/10/2024 11:14 AM GLASS GLAZIER Inhaled Oxygen Concentration - - Weight 56.2 kg (124 lb) 11/10/2024 11:14 AM GLASS GLAZIER Height 157.5 cm (5' 2) 11/10/2024 11:14 AM GLASS GLAZIER Body Mass Index 22.68 11/10/2024 11:14 AM GLASS GLAZIER Plan of Treatment Upcoming Encounters Date Type Department Care Team (Late st Contact Info) Description 03/17/2025 9:00 AM CDT Office Visit [facility] Internal Medicine - [place] [address] [place] [phone] [place] [address] [place] [address] 03/17/2025 11:15 AM CDT Office Visit [facility] Hepatology [address], [place] [address] [place] [address] Wil Almeida MD [address] [place] [address] [facility] [address] Health Maintenance Due Date Last Done Comments FIT/ DNA Q 3 YEARS (AUTO ORDER) 1971 FIT/FOBT Q 1 YEAR (AUTO ORDER) 1971 FIT-DNA Q 3 years 1998 FIT/FOBT Q 1 year 1998 RSV VACCINE (60+ or ) (1 - Risk 60-74 years 1-dose series) 2013 ZOSTER VACCINE (2 of 3) 06/22/2014 04/27/2014 FLEX SIG/CT COLONOGRAPHY Q 5 YEARS (AUTO ORDER) 10/25/2020 10/25/2015 Flex Sig/CT Colonography Q 5 years 10/25/20202015 INFLUENZA VACCINE (#1) 2024 3, 05/17/2022, 05/07/2021, Additional history exists DIABETES ANNUAL RETINAL EXAM 04/18/2024 04/18/2023 COVID-19 Vaccine (2023-2 5 season) 2024 06/21/2021, 11/18/2020, 10/28/2020 BREAST CANCER SCREENING 02/05/2025 02/06/20 24, 12/25/2022, 12/25/2022, Additional history exists Traditional Medicare (ACO) A nnual Wellness Visit 03/17/2025 03/16/2024, 03/11/2023, 03/08/2022, Additional history exists LDL CHOLESTEROL ANNUAL 03/19/2025 4, 03/13/2023, 03/24/2022, Additional history exists DIABETES HBA1C Q 6 MONTHS 05/13/20252024, 03/19/2024, 03/19/2024, Additional history exists DIABETES ANNUAL FOOT EXAM 11/10/2025 11/10/2024 DIABETES: A1C (Auto Order) 11/10/202511/10, 03/19/2024, 03/19/2024, Additional history exists DIABETES MICROALBUMIN ANNUAL SCREEN 11/17/2025 11/17/2024, 07/22/2024 OSTEOPOROSIS SCREENING 03/23/2029 4, 03/23/2024, 04/25/2021 DTAP/TDAP/TD VACCINES (2 - T d or Tdap) 02/14/2030 02/15/2020, 10/10/2009 COLORECTAL CANCER SCREENING (AUTO ORDER) 07/02/2032 07/02/2022, 07/02/2022, 10/25/2015 COLORECTAL SCREENING 07/02/2032 07/02/2022, 07/02/2022, 10/25/2015, Additional history exists Colorectal Cancer Screening (AUTO ORDER) 07/02/2032 Colorectal Cancer Screening 07/02/2032 PNEUMOCOCCAL VACCINE 50+ YEARS Completed 02/15/2020 , 02/12/2019 Medical Devices Implanted Type Area Hospice Case Manager Device Identifier Shelf Expiration Date Model / Serial / Lot Sealant Floseal W/ Adptr 10ml [id number] - [id number] Implanted:Qty : 1 on 11/18/2013 by Colleen Zapata MD at [facility] Sealant N/A: Abdomen [employer] 01/07/2015 [id number] / / [id number] Sling Desara System Phillip-Ds01 - [id number] Implanted:Qty : 1 on 09/06/[address] [facility] Sling N/A: Vagina [employer] 01/06/2017 PHILLIP-DS01 / / [id number] Sling Desara System Phillip-Ds01 - [id number] Implanted:Qty : 1 on 09/06/[address] [facility] Sling N/A: Urethra [employer] 10/09/2016 PHILLIP-DS01 / / [id number] Explanted Type Area Hospice Case Manager Device Identifier Shelf Expiration Date Model / Serial / Lot Mesh Explanted:Qty: 1 on 09/06/2014 by Colleen Zapata MD at [facility] N/A: Urethra Procedures Procedure Name Priority Date/Time Associated Diagnosis Comments MICROALBUMIN/CREATINI NE RATIO, RANDOM UR Routine 11/17/2024 10:35 AM CDT COMPREHENSIVE METABOLIC PANEL Routine 11/17/2024 10:35 AM CDT Type 2 diabetes mellitus without complication, without long-term current use of insulin ([facility]) POC HEMOGLOBIN A1C Routine 11/10/2024 11 :25 AM GLASS GLAZIER Type 2 diabetes mellitus without complication, without long-term current use of insulin ([facility]) XR DEXA BONE DENSITY AXIAL 1 OR MORE SITES Routine 03/23/2024 Age-related osteoporosis without current pathological fracture LIPID PANEL Routine 03/19/2024 8:26 AM CDT Medicare annual wellness visit, subsequent Other hyperlipidemia MAMMO 3D LEDY SCREEN BILAT W OR WO CAD Routine 02/06/2024 1:55 PM CDT COLONOSCOPY REPORT 07/02/2022 2: 46 PM CDT MD SIGMOIDOSCOPY FLX DX W/COLLJ SPEC BR/WA IF PFRMD Routine 10/25/2015 4:28 PM GLASS GLAZIER Lower abdominal pain from Last 3 Months or Most Recently Relevant to Health Maintenance Results * (ABNORMAL) MICROALBUMIN/CREATININE RATIO, RANDOM UR (11/17/2024 10:35 AM CDT) Creatinine, Urine 7(L) 20 - 275 mg/dL [facility] MICROALBUMIN, URINE <0.2 See Note: mg/dL [facility] Comment: Reference Range: Reference Range Not established MICROALBUMIN/CREAT RATIO, UR NOTE <30 mg/g creat [facility] Comment: NOTE: The urine albumin value is less than 0.2 mg/dL therefore we are unable to calculate excretion and/or creatinine ratio. The ADA defines abnormalities in albumin excretion as follows: Albuminuria Category Result (mg/g creatinine) Normal to Mildly increased <30 Moderately increased 30-299 Severely increased > OR = 300 The ADA recommends that at least two of three specimens collected within a 3-6 month period be abnormal before considering a patient to be within a diagnostic category. Test Performed at: [facility] [address] [place] [address] Rudi Real MD 11/17/2024 10:3 5 AM CDT 11/17/2024 10:35 AM CDT us Magaly Ovalles NURSES' AIDE URINE ORDERABLES Final Res ult [facility] [phone] [facility] [address] [place] [address] * COMPREHENSIVE METABOLIC PANEL (11/17/2024 10:35 AM CDT) GLUCOSE 89 65 - 99 mg/dL [facility] Comment: Fasting reference interval BUN 17 7 - 25 mg/dL [facility] CREATININE 0.72 0.60 - 1.00 mg/dL [facility] GFR 89 > OR = 60 mL/min/1. 73m2 [facility] BUN/CREAT RATIO SEE NOTE: 6 - 22 (calc) [facility] Comment: Not Reported: BUN and Creatinine are within reference range. SODIUM 140 135 - 146 mmol/L [facility] POTASSIUM 4.1 3.5 - 5.3 mmol/L [facility] CHLORIDE 106 98 - 110 mmol/L [facility] CO2 24 20 - 32 mmol/L [facility] CALCIUM 9.6 8.6 - 10.4 mg/dL [facility] TOTAL PROTEIN 7.3 6.1 - 8.1 g/dL [facility] ALBUMIN 5.0 3.6 - 5.1 g/dL [facility] GLOBULIN 2.3 1.9 - 3.7 g/dL (calc) [facility] ALBUMIN/GLOBULIN RATIO 2.2 1.0 - 2.5 (calc) [facility] BILIRUBIN TOTAL 1.0 0.2 - 1.2 mg/dL [facility] ALKALINE PHOSPHATASE 53 37 - 153 U/L [facility] AST 25 10 - 35 U/L [facility] ALT 24 6 - 29 U/L [facility] Comment: Test Performed at: [email or web address] [address] [place] [address] Rudi Real MD Blood 11/17/2024 10:3 5 AM CDT 11/17/2024 10:35 AM CDT Magaly Ovalles NURSES' AIDE CHEMISTRY ORDERABLES Final Result [facility] [phone] [facility] [address] [facility] [address] * POC HEMOGLOBIN A1C (11/10/2024 11:25 AM GLASS GLAZIER) HGB A1C POC 5.5 4.0 - 6.0 % [facility] KIT LOT NUMBER POC [id number] [facility] KIT EXP DATE POC 07/09/26 [facility] Blood, capillary 11/10/2024 11:25 AM GLASS GLAZIER us Magaly Ovalles NP POINT OF CARE TESTING Mairanna ashutosh Result [facility] CLIA# [id number] [address] [facility], [address] [id number] * XR DEXA BONE DENSITY AXIAL 1 OR MORE SITES (03/23/2024) Anatomical Region Laterality Modality Other us Wil Almeida MD DIAGNOSTIC IMAGING ORDERABLE S Final Result * (ABNORMAL) LIPID PANEL (03/19/2024 8:26 AM CDT) CHOLESTEROL 135 <200 mg/dL [facility] HDL 40(L) > OR = 50 mg/dL [facility] TRIGLYCERIDE 157(H) <150 mg/dL [facility] LDL CALCULATED 72 mg/dL (calc) [facility] Comment: Reference range: <100 Desirable range <100 mg/dL for primary prevention; <70 mg/dL for patients with CHD or diabetic patients with > or = 2 CHD risk factors. LDL-C is now calculated using the Luc-Sparks calculation, which is a validated novel method providing better accuracy than the Friedewald equation in the estimation of LDL-C. Luc SS et al. HAKAN. 2013;310(19): 2030-1695 (http://education.[employer].Three Rings/faq/LOB315) CHOL/HDL RATIO 3.4 <5.0 (calc) [facility] NON-HDL CHOLESTEROL 95 <130 mg/dL (calc) [facility] Comment: For patients with diabetes plus 1 major ASCVD risk factor, treating to a non-HDL-C goal of <100 mg/dL (LDL-C of <70 mg/dL) is considered a therapeutic option. Test Performed at: [facility] [address] [place] [address] Rudi Real MD Blood 03/19/2024 8:26 AM CDT 03/19/2024 8:28 AM CDT Robinson Vickers MD CHEMISTRY ORDERA BLES Final Result [facility] [phone] [facility] [address] [place] [address] * MAMMO 3D LEDY SCREEN BILAT W OR WO CAD (02/06/2024 1:55 PM CDT) Anatomical Region Laterality Modality Breast Bilateral Mammography us Abstract Provider MAMMO ORDERABLES Final Result * COLONOSCOPY REPORT (07/02/2022 2:46 PM CDT) Narrative Procedure Note Wil Almeida MD - 07/02/2022 2:46 PM CDT [facility] Endoscopy Patient Name: Janny Mccall Procedure Date: 07/02/2022 Date of : 1955 Attending MD: Wil Almeida MD, Procedure: Colonoscopy Indications: Screening for colorectal malignant neoplasm (last colonoscopy was more than 10 years ago) Providers: Wil Almeida MD Referring MD: Robinson Magallanes MD Medicines: TIVA Complications: No immediate complications. Estimated blood loss: None. Procedure: Informed consent was obtained for the procedure, including moderate sedation after risks were discussed. Based on the pre-procedure assessment, including review of the patient's medical history, medications, allergies, and review of systems, the patient was deemed to be an appropriate candidate for sedation. A timeout was performed. Continuous ECG monitoring, pulse oximetry, blood pressure monitoring, and direct observation were performed. The Colonoscope was introduced through the anus and advanced to the terminal ileum. The colonoscopy was performed without difficulty. The patient tolerated the procedure well. The quality of the bowel preparation was good. Estimated Blood Loss: Estimated blood loss: none. Findings: Non-bleeding hemorrhoids were found during perianal exam (retroflexion not easily achieved so careful forward view). The hemorrhoids were medium-sized. There was evidence of a non-patent ileo-ileal anastomosis found in the terminal ileum. The exam was otherwise without abnormality. Impression: - Non-bleeding hemorrhoids. - Non-patent anastomosis, characterized by healthy appearing mucosa. - The examination was otherwise normal. - No specimens collected. Recommendation: - Average risks colon and rectal cancer screening. Current guidelines call for a repeat study in 10 years. Sooner colonoscopy may be proper for symptoms or a family history of polyps or cancer. Wil Almeida MD 07/02/2022 2:45:42 PM This report has been signed electronically. Number of Addenda: [address]; [place] [address] us Wil Almeida MD GI PROCEDURE ORDERABLES Marianna l Result * MD SIGMOIDOSCOPY FLX DX W/COLLJ SPEC BR/WA IF PFRMD (10/25/2015 4:28 PM GLASS GLAZIER) Narrative [facility] - 10/25/2015 4:28 PM GLASS GLAZIER Evelyn Angeles MD 10/25/2015 4:28 PM Flexible sigmoidoscopy Patient is placed in the prone jackknife position. The flexible sigmoidoscopy was inserted lubricated into the anus. Mucosa was then inspected up to 15 cm. There are no notable mucosal abnormalities or lesions. Patient tolerated the procedure well. us Evelyn Angeles MD GI PROCEDURE ORDERABLES Fin al Result [facility] from Last 3 Months or Most Recently Relevant to Health Maintenance Insurance MEDICARE PART A AND B BCBS [employer] [facility] Medicare Part D Advance Directives For more information, please contact: [phone] Documents on File Type Date Recorded Patient Clinical Research Physician Expl anation Advance Directive Living Will 03/11/2023 12:11 PM Advance Directive Living Will * Full Code (Latest Code Status on File) Date Activated Date Inactivated Comments 07/02/2022 12:49 PM 07/02/2022 5:38 PM * Full Code Date Activated Date Inactivated Comments 12/30/2018 7:02 AM 12/30/2018 11:09 AM * Full Code Date Activated Date Inactivated Comments 09/06/2014 6:40 AM 09/06/2014 9:17 PM * Full Code Date Activated Date Inactivated Comments 09/06/2014 5:40 AM 09/06/2014 6:40 AM * Full Code Date Activated Date Inactivated Comments 11/18/2013 11:31 PM 11/23/2013 7:24 PM Care Teams Melt House Centrifugal Operator Relationship Specialty [place] [address] [place] [phone] PCP - General Internal Medicine 12/09/17
[2025-02-04 16:55] LABS: Glucose Point of Care 94 mg/dl (65-105)
--- NOTE | 2025-02-04 16:57 | ED.URI ---
HPI - URI/Sore Throat General Chief Complaint: Upper Respiratory Infection Stated Complaint: cough Source: patient Mode of arrival: ambulatory Limitations: no limitations History of Present Illness HPI Narrative: 69-year-old female history of diabetes presented for complaint of cough with occasional wheezing, runny nose and left ear pressure and occasional headache. Onset 4 days. Taking Mucinex. Patient also reports her home Dexcom is reading blood sugars into the 40s and 50s, but states it is likely not accurate because she has new symptoms. Patient purchased a fingerstick meter today. Denies shortness of breath, nausea vomiting diarrhea, fevers or chills. Related Data Home Medications ?Medication ?Instructions ?Recorded ?Confirmed ?Last Taken ?Type atorvastatin 10 mg tablet 10 mg PO DAILY 09/22/19 09/06/23 Unknown History alendronate 70 mg tablet 70 mg PO WEEKLY 12/05/21 09/06/23 Unknown History levothyroxine 25 mcg tablet 25 mcg PO DAILY 12/05/21 09/06/23 Unknown History metformin 500 mg tablet,extended 500 mg PO DAILY 10/10/22 09/06/23 Unknown History release 24 hr amlodipine 5 mg tablet 5 mg PO DAILY 01/30/23 09/06/23 Unknown History blood-glucose sensor (FreeStyle 02/04/25 02/04/25 Unknown History Lindy 3 Sensor device) famotidine 20 mg tablet mg 02/04/25 Unknown History topiramate 25 mg tablet mg 02/04/25 Unknown History Allergies Allergy/AdvReac Type Severity Reaction Status Date / Time tramadol Allergy Intermediate Hallucinati Verified 02/04/25 17:00 ng doxycycline AdvReac Intermediate Nausea and Verified 02/04/25 17:00 Vomiting Review of Systems Review of Systems: per HPI All systems reviewed & are unremarkable except as noted in HPI and below PMFSH Past Medical History Medical History Pre-diabetes Hypertension GERD (gastroesophageal reflux disease) Hypercholesterolemia Surgical History Surgical History History of hysterectomy History of bladder surgery History of exploratory laparotomy History of bowel resection Family History Family History Mother Family history non-contributory Social History Social History Smoking status: Former smoker Substance use: never Gender identity (if verbalized by the patient): Female Sexual Orientation (if Verbalized by the Patient): Straight or Heterosexual Spiritual care concerns: No Comments At time of signature, I have reviewed and agree with nursing past medical, surgical, social and family history unless otherwise noted. Please see nursing chart for further information. There is no relevant family history pertinent to the presenting complaint Exam Narrative: GENERAL: Well-appearing, in no acute distress. EYES: EOMI. No redness or drainage. Conjunctivae normal. ENT: Mucous membranes pink and moist. No rhinorrhea. TMs normal bilaterally. Throat normal. Uvula midline. NECK: Normal AROM. Supple. CHEST: No respiratory distress, speaks full sentences. Expiratory coarse sounds to all bess. HEART: Regular rate and rhythm. No murmur appreciated. EXTREMITIES: Normal range of motion. No edema. SKIN: Warm, dry, no rash. Capillary refill normal. Normal skin turgor. NEURO: Alert and oriented x3. Gait steady. PSYCH: Normal affect. Course Course Emergency Course: Patient is aware of diagnosis, understands and agrees to treatment plan. Anticipatory guidance given. Patient agrees to follow-up as directed and is aware of reasons to seek care at the emergency department. Portions of this record may have been created with voice recognition software Level of Care: Express Care Visit MDM - URI/Sore Throat MDM Narrative Medical decision making narrative: BS 94. Discussed physical exam findings; pt declines cxr at this time. Rx prednisone. Pt will f/u with pcp regarding BS readings of her personal dexcom, and she purchased a finger stick today for more accurate readings. Advised supportive measures and signs/symptoms to go to the ER. Pt is appropriate for outpt treatment and f/u.. Differential Diagnosis Differential diagnosis: Likely upper respiratory infection, sinusitis, viral infection, bronchitis, pharyngitis and other (Angioedema, perforation, asthma, pneumonia, PE, tension pneumothorax, cardiac tamponade ID, pericarditis, pleural effusion, CHF, bronchitis, cardiac arrhythmia) Lab Data Labs: Lab Results 02/04/25 Range/Units 16:52 POC Capillary Glucose 94 (65-105) mg/dl Discharge Plan Discharge Clinical Impression: Bronchitis Patient Disposition: Home Condition: Stable Instructions: Acute Bronchitis (ED) Additional Instructions: Acute bronchitis can be contagious because it is usually caused by infection with a virus or bacteria. It is usually for a few days but you can be contagious for up to one week. Take medication as directed Recommend Flonase spray and Zyrtec (or Claritin/Janie) for nasal congestion and drainage over the counter Cough syrup may cause drowsiness; avoid driving or take it at night time. Tylenol every 8 hours as needed for pain Symptomatic treatment includes: rest, fluids, and increase humidity of the air at home. Please follow up with your doctor regarding the blood sugar readings in your Dexcom. Follow up with your primary care provider as needed in 1 week Go to the ER for worsening symptoms or concerns Patient Language: Icelandic Prescriptions: New prednisone 20 mg tablet 40 mg PO DAILY 5 Days Qty: 10 0RF No Action atorvastatin 10 mg Tablet 10 mg PO DAILY metformin 500 mg tablet extended release 24 hr 500 mg PO DAILY amlodipine 5 mg tablet 5 mg PO DAILY topiramate 25 mg tablet famotidine 20 mg tablet (DME) [employer] Lindy 3 Sensor Device MISCELLANEOUS alendronate 70 mg tablet 70 mg PO WEEKLY levothyroxine 25 mcg tablet 25 mcg PO DAILY Follow-up/Referrals: UNKNOWN,DOCTOR [Primary Care Provider] - Time of Disposition: 17:07
[2025-02-04 17:02] VITALS: BP 149/94; PULSE 78; RESP 16; TEMP 36.4; O2SAT 96
== END 2025-02-04 17:13 | disposition home or self-care (01) ==
PROVIDERS: Emergency Provider Nurse Practitioner Family
DX: J40 Bronchitis, not specified as acute or chronic (principal); I10 Essential (primary) hypertension; E78.00 Pure hypercholesterolemia, unspecified; K21.9 Gastro-esophageal reflux disease without esophagitis; R73.03 Prediabetes; Z87.891 Personal history of nicotine dependence
CPT/HCPCS: 82948; 99213; G0463